=== PATIENT | female | born 1990 | race Caucasian/White ===

== ENCOUNTER 2022-06-18 08:34 | Outpatient (CLI) | payer OTHER, SELFPAY | END 2022-06-18 08:35 | disposition home or self-care (01) | PROVIDERS: Visit Provider Obstetrics & Gynecology | DX: B37.31 Acute candidiasis of vulva and vagina (principal) | CPT/HCPCS: 87102 ==

== ENCOUNTER 2022-06-20 07:30 | Outpatient (CLI) | payer OTHER, SELFPAY | END 2022-06-20 07:31 | disposition home or self-care (01) | LOC: NFLDREF 06-21 00:28 | PROVIDERS: Visit Provider Obstetrics & Gynecology | DX: Z13.1 Encounter for screening for diabetes mellitus (principal); Z13.6 Encounter for screening for cardiovascular disorders | CPT/HCPCS: 80061; 82947 ==

== ENCOUNTER 2022-06-21 15:20 | Outpatient (CLI) | payer OTHER, SELFPAY | END 2022-06-21 15:21 | disposition home or self-care (01) | LOC: US 15:21 | PROVIDERS: Visit Provider Obstetrics & Gynecology | DX: Z30.9 Encounter for contraceptive management, unspecified (principal); Z97.5 Presence of (intrauterine) contraceptive device | CPT/HCPCS: 76856 ==